=== PATIENT | female | born 1990 | race African-American/Black ===

== ENCOUNTER 2023-12-14 18:07 | Emergency (ER) | payer BC ==
[~2023-12-14] VITALS: Ht 165.1 cm; Wt 68.0 kg
[2023-12-14 18:21] VITALS: BP 124/70
[2023-12-14] MEDS ORDERED: ACETAMINOPHEN 500 MG TAB PO ONE (19:30)
[2023-12-14 19:53] LABS: BASO% 0.6 % (0-3); EOS% 3.2 % (0-8); HEMATOCRIT 33.3 % (37.0-47.0); HEMOGLOBIN 10.3 g/dl (12.0-16.0); IMMATURE GRANULOCYTES 0.2 % (0.0-5.0); LYMPH% 33.6 % (15-41); MEAN CORPUSCULAR HGB 22.6 pG CALC (26.0-32.0); MEAN CORPUSCULAR HGB CONC 30.9 g/dL CAL (32.0-36.0); MONO% 6.2 % (2-13); NEUT# 3.75 thou/uL (2.00-7.15); NEUT% 56.2 % (42-76); RED BLOOD COUNT 4.56 mill/uL (4.20-5.60); RED CELL DISTRI WIDTH 16.9 % (11.5-15.5)
[2023-12-14 19:56] LABS: URINE BILIRUBIN - DIPSTICK Negative (NEGATIVE); URINE BLOOD DIPSTICK Negative (NEGATIVE); URINE GLUCOSE - DIPSTICK Negative (NEGATIVE); URINE KETONE Negative (NEGATIVE); URINE NITRITE - DIPSTICK Negative (Negative); URINE PH 8.5 (4.5-8.0); URINE PROTEIN - DIPSTICK Negative (NEG-TRACE); URINE SPECIFIC GRAVITY 1.015
[2023-12-14 19:57] LABS: URINE COLOR Yellow; URINE LEUK ESTERASE Small (NEGATIVE)
[2023-12-14 20:03] LABS: URINE SQUAMOUS EPITHELIAL CELL FEW EPI/hpf (0-FEW)
[2023-12-14 20:04] LABS: URINE AMORPH SEDIMENT FEW hpf (NONE-FEW); URINE BACTERIA FEW hpf; URINE RBC 0-2 RBC/hpf (0-5)
[2023-12-14 20:04] LABS: ALBUMIN 3.8 g/dL (3.2-5.0); BILIRUBIN, TOTAL 0.2 mg/dL (0.02-1.3); CREATININE 0.7 mg/dL (0.5-1.0); POTASSIUM 3.8 mmol/l (3.5-5.1); TOTAL PROTEIN 7.6 g/dL (6.3-8.2)
[2023-12-14 20:15] VITALS: BP 123/86
[2023-12-14 22:38] VITALS: BP 129/89
== END 2023-12-14 22:43 | disposition home or self-care (01) | DRG 392 ==
LOC: ED 18:07
PROVIDERS: Family Medicine
DX: R10.32 Left lower quadrant pain (principal); R82.71 Bacteriuria

== ENCOUNTER 2024-01-17 20:24 | Emergency (ER) | payer BC ==
[~2024-01-17] VITALS: Ht 165.1 cm; Wt 99.7 kg
[2024-01-17] MEDS ORDERED: Diph, Acellular Pertussis, Tet 0.5 ML/VIAL (Tdap) SDV IM STA (21:49)
[2024-01-17] MEDS ORDERED: BUTALBITAL-APAP-CAFFEINE 50-325-40 TAB PO ONE (21:50)
[2024-01-17] MEDS ORDERED: RABIES IMMUNE GLOBULIN 1,500 IU/10 ML SDV IM ONE (21:50)
[2024-01-17] MEDS ORDERED: KETOROLAC TROMETHAMINE 30 MG/ML SDV IM ONE (21:50)
[2024-01-17] MEDS ORDERED: RABIES VACCINE, PCEC 2.5 UNITS/VIAL SDV IM ONE (21:50)
[2024-01-17] MEDS ORDERED: AMOXICILLIN & POT CLAVULANATE 875 MG/TAB PO ONE (21:55)
[2024-01-18] MEDS ORDERED: AMOX/K CLAV875 M1 PO (02:04)
[2024-01-18 02:32] VITALS: BP 116/81
== END 2024-01-18 02:32 | disposition home or self-care (01) | DRG 605 ==
LOC: ED 20:24
DX: S81.852A Open bite, left lower leg, initial encounter (principal); R51.9 Headache, unspecified; W54.0XXA Bitten by dog, initial encounter
CPT/HCPCS: 90377

== ENCOUNTER 2024-01-21 00:01 | Emergency (ER) | payer BC ==
[~2024-01-21] VITALS: Ht 165.1 cm; Wt 81.0 kg
[2024-01-21] VITALS (10 sets, daily range): BP systolic 104–126; BP diastolic 67–91
[~2024-01-21 00:01] MED LIST: AMOX/K CLAV875 M1 PO
[2024-01-21] MEDS ORDERED: SODIUM CHLORIDE 0.9% 1,000 ML IV STA (00:16)
[2024-01-21] MEDS ORDERED: ACETAMINOPHEN 500 MG TAB PO ONE (00:20)
[2024-01-21] MEDS ORDERED: KETOROLAC TROMETHAMINE 30 MG/ML SDV IV ONE (00:20)
[2024-01-21] MEDS ORDERED: PROMETHAZINE HCL 25 MG/ML AMP IV ONE (00:20)
[2024-01-21 00:42] LABS: HCG SERUM/URINE (NEG/POS) NEGATIVE (NEGATIVE)
[2024-01-21 00:44] LABS: URINE BILIRUBIN - DIPSTICK Negative (NEGATIVE); URINE BLOOD DIPSTICK Negative (NEGATIVE); URINE COLOR Yellow; URINE GLUCOSE - DIPSTICK Negative (NEGATIVE); URINE KETONE Negative (NEGATIVE); URINE LEUK ESTERASE Negative (NEGATIVE); URINE NITRITE - DIPSTICK Negative (Negative); URINE PROTEIN - DIPSTICK Negative (NEG-TRACE); URINE SPECIFIC GRAVITY <=1.005; URINE UROBILINOGEN - DIPSTICK 0.2 E.U./dL (0.2)
[2024-01-21 00:48] LABS: BASO% 0.4 % (0-3); EOS% 2.4 % (0-8); HEMATOCRIT 33.8 % (37.0-47.0); HEMOGLOBIN 10.5 g/dl (12.0-16.0); IMMATURE GRANULOCYTES 0.4 % (0.0-5.0); LYMPH% 45.7 % (15-41); MEAN CELL VOLUME 71.6 fL CALC (80.0-100.0); MEAN CORPUSCULAR HGB 22.2 pG CALC (26.0-32.0); MEAN CORPUSCULAR HGB CONC 31.1 g/dL CAL (32.0-36.0); MONO% 6.9 % (2-13); NEUT# 3.19 thou/uL (2.00-7.15); NEUT% 44.2 % (42-76); RED BLOOD COUNT 4.72 mill/uL (4.20-5.60); RED CELL DISTRI WIDTH 16.6 % (11.5-15.5)
[2024-01-21 01:04] LABS: BILIRUBIN, TOTAL 0.2 mg/dL (0.02-1.3); CREATININE 0.8 mg/dL (0.5-1.0); POTASSIUM 3.5 mmol/l (3.5-5.1)
[2024-01-21] MEDS ORDERED: PROMETHAZINE HY25 M1 PO (01:58)
== END 2024-01-21 02:38 | disposition home or self-care (01) | DRG 866 ==
LOC: ED 00:01
PROVIDERS: Family Medicine
DX: B34.9 Viral infection, unspecified (principal); S81.859D Open bite, unspecified lower leg, subsequent encounter; W54.0XXD Bitten by dog, subsequent encounter; Z20.822 Contact with and (suspected) exposure to COVID-19

== ENCOUNTER 2024-05-04 08:45 | Emergency (ER) | payer BC ==
[~2024-05-04] VITALS: Ht 165.1 cm; Wt 68.0 kg
[~2024-05-04 08:45] MED LIST changes: +NAPROXEN500 MG PO; +PROMETHAZINE HY25 M1 PO; +TYLENOL # 31 TA1 PO
[2024-05-04 08:52] VITALS: BP 131/87
[2024-05-04] MEDS ORDERED: KETOROLAC TROMETHAMINE 15 MG/ML SDV IV ONE (09:00)
[2024-05-04] MEDS ORDERED: DiphenhydrAMINE HCL 50 MG/ML SDV IV ONE (09:00)
[2024-05-04] MEDS ORDERED: METOCLOPRAMIDE HCL 10 MG/2 ML SDV IV ONE (09:00)
[2024-05-04] MEDS ORDERED: SODIUM CHLORIDE 0.9% 1,000 ML IV ONE (09:00)
[2024-05-04] MEDS ORDERED: LAMISIL AT1 % EX (09:07)
[2024-05-04 09:21] LABS: BASO% 0.3 % (0-3); EOS% 0.7 % (0-8); HEMATOCRIT 39.5 % (37.0-47.0); HEMOGLOBIN 11.7 g/dl (12.0-16.0); IMMATURE GRANULOCYTES 0.1 % (0.0-5.0); MEAN CELL VOLUME 74.4 fL CALC (80.0-100.0); MEAN CORPUSCULAR HGB CONC 29.6 g/dL CAL (32.0-36.0); MONO% 6.7 % (2-13); NEUT# 4.79 thou/uL (2.00-7.15); NEUT% 67.2 % (42-76); RED BLOOD COUNT 5.31 mill/uL (4.20-5.60); RED CELL DISTRI WIDTH 16.9 % (11.5-15.5)
[2024-05-04 09:31] VITALS: BP 117/75
[2024-05-04 09:43] LABS: ALBUMIN 4.3 g/dL (3.2-5.0); CREATININE 0.6 mg/dL (0.5-1.0); TOTAL PROTEIN 8.5 g/dL (6.3-8.2)
[2024-05-04 09:45] VITALS: BP 120/78
[2024-05-04 09:46] LABS: BILIRUBIN, TOTAL 0.5 mg/dL (0.02-1.3)
[2024-05-04 10:00] VITALS: BP 113/82
[2024-05-04 10:15] VITALS: BP 116/73
[2024-05-04 10:17] VITALS: BP 116/73
== END 2024-05-04 10:30 | disposition home or self-care (01) | DRG 103 ==
LOC: ED 08:45
PROVIDERS: Family Medicine
DX: R51.9 Headache, unspecified (principal); B35.6 Tinea cruris
CPT/HCPCS: J1200; J1885; J2765

== ENCOUNTER 2024-06-25 10:24 | Emergency (ER) | payer OTHER ==
[~2024-06-25] VITALS: Ht 165.1 cm; Wt 90.7 kg
[~2024-06-25 10:24] MED LIST changes: +LAMISIL AT1 % EX
[2024-06-25] MEDS ORDERED: AMOX/K CLAV875 M1 PO (13:33)
[2024-06-25 13:43] VITALS: BP 120/74
== END 2024-06-25 13:55 | disposition home or self-care (01) | DRG 833 ==
LOC: ED 10:24
DX: O26.891 Other specified pregnancy related conditions, first trimester (principal); R59.0 Localized enlarged lymph nodes; M54.6 Pain in thoracic spine; Z3A.00 Weeks of gestation of pregnancy not specified

== ENCOUNTER 2024-07-16 17:22 | Emergency (ER) | payer OTHER ==
[~2024-07-16] VITALS: Ht 165.1 cm; Wt 90.2 kg
[2024-07-16 18:10] VITALS: BP 128/81
[2024-07-16 18:15] VITALS: BP 123/82
[2024-07-16 18:28] LABS: URINE BILIRUBIN - DIPSTICK Negative (NEGATIVE); URINE BLOOD DIPSTICK Negative (NEGATIVE); URINE COLOR Yellow; URINE GLUCOSE - DIPSTICK Negative (NEGATIVE); URINE KETONE Negative (NEGATIVE); URINE LEUK ESTERASE Trace (NEGATIVE); URINE NITRITE - DIPSTICK Negative (Negative); URINE PH 6.5 (4.5-8.0); URINE PROTEIN - DIPSTICK Negative (NEG-TRACE); URINE UROBILINOGEN - DIPSTICK 0.2 E.U./dL (0.2)
[2024-07-16 18:31] VITALS: BP 120/81
[2024-07-16 18:46] VITALS: BP 132/76
[2024-07-16 19:12] LABS: BASO% 0.3 % (0-3); EOS% 2.2 % (0-8); HEMATOCRIT 36.5 % (37.0-47.0); HEMOGLOBIN 11.3 g/dl (12.0-16.0); IMMATURE GRANULOCYTES 0.3 % (0.0-5.0); LYMPH% 32.1 % (15-41); MEAN CELL VOLUME 72.7 fL CALC (80.0-100.0); MEAN CORPUSCULAR HGB 22.5 pG CALC (26.0-32.0); MONO% 8.3 % (2-13); NEUT# 3.35 thou/uL (2.00-7.15); NEUT% 56.8 % (42-76); RED BLOOD COUNT 5.02 mill/uL (4.20-5.60); RED CELL DISTRI WIDTH 15.9 % (11.5-15.5)
[2024-07-16 19:25] LABS: ALBUMIN 3.9 g/dL (3.2-5.0); BILIRUBIN, TOTAL 0.3 mg/dL (0.02-1.3); CREATININE 0.5 mg/dL (0.5-1.0); POTASSIUM 3.6 mmol/l (3.5-5.1)
[2024-07-16 21:32] VITALS: BP 132/76
== END 2024-07-16 21:32 | disposition home or self-care (01) | DRG 833 ==
LOC: ED 17:22
PROVIDERS: Family Medicine; Nurse Practitioner
DX: O20.0 Threatened abortion (principal); Z3A.15 15 weeks gestation of pregnancy